=== PATIENT | male | born 1990 | race Caucasian/White ===

== ENCOUNTER 2017-05-01 06:05 | Emergency (ER) | payer SELFPAY ==
[2017-05-01 06:10] VITALS: BP 135/64; PULSE 71; RESP 16; TEMP 97.9; O2SAT 97
[2017-05-01] MEDS ORDERED: PENICILLIN VK 250MG PREPACK#6 BTL TAKEHOME ONE (06:16)
[2017-05-01] MEDS ORDERED: PENICILLIN VK 250 MG TAB PO ONE ×2 (06:16→06:19)
--- NOTE | 2017-05-01 06:16 | EDPHY ---
H & P Stated Complaint: right, upper toothache x1 week HPI/ROS: HPI CHIEF COMPLAINT: Dental pain x1 week HISTORY OF PRESENT ILLNESS: This patient 27-year-old male homeless, denies any significant medical history does not take any daily medications, tells me that is molar and premolar to that on the right upper side has pain x1 week. No facial swelling. No fever. No trouble swallowing. No drooling or trismus. States he has dental decay. No dentist. Presents emergency room with 1 week of worsening pain. Past Medical History: No significant medical history Past Surgical History: no significant surgical history Social History: Smokes tobacco daily, denies alcohol, occasional marijuana Family History: Noncontributory ROS REVIEW OF SYSTEMS: A comprehensive 10 point review of systems is otherwise negative aside from elements mentioned in the history of present illness. Exam Constitutional triage nursing summary reviewed, vital signs reviewed, awake/ alert. Eyes normal conjunctivae and sclera, EOMI, PERRLA. HENT oropharynx: the right upper posterior molar and premolar have dental decay present, no gumline abscess, no facial swelling, no signs of Luis Alberto's, normal inspection, atraumatic, moist mucus membranes, no epistaxis, neck supple / no meningismus, no raccoon eyes. Respiratory clear to auscultation bilaterally, normal breath sounds, no respiratory distress, no wheezing. Cardiovascular rate normal, regular rhythm, no murmur, no edema, distal pulses normal. Gastrointestinal soft, non-tender, no rebound, no guarding, normal bowel sounds, no distension, no pulsatile mass. Genitourinary no CVA tenderness. Musculoskeletal no midline vertebral tenderness, full range of motion, no calf swelling, no tenderness of extremities, no meningismus, good pulses, neurovascularly intact. Skin pink, warm, & dry, no rash, skin atraumatic. Neurologic awake, alert and oriented x 3, AAOx3, moves all 4 extremities equally, motor intact, sensory intact, CN II-XII intact, normal cerebellar, normal vision, normal speech. Psychiatric normal mood/affect. Heme/Lymph/Immune no lymphadenopathy. Differential Diagnosis: includes but is not limited to in no particular order acute dental infection, pulpitis, nerve root infection, cavities, gumline abscess, doubt early osteomyelitis Medical Decision Making: Plan for this patient Pen-VK here in the emergency room and ibuprofen. Prescription for both. Follow up with dentist referrals given. Return emergency room if there is any worsening symptoms questions or concerns he understand. Also understands refrain from smoking. Source: Patient - Personal History Current Tetanus/Diphtheria Vaccine: Yes Current Tetanus Diphtheria and Acellular Pertussis (TDAP): Yes Tetanus Vaccine Date: <10 years - Medical/Surgical History Hx Asthma: No Hx Chronic Respiratory Disease: No Hx Diabetes: No Hx Cardiac Disease: No Hx Renal Disease: No Hx Alcoholism: No Other PMH: spinal fusion 2012. femur sx in 2012 - Social History Smoking Status: Current some day smoker Constitutional: Initial Vital Signs Temperature (C) 36.6 C 05/01/17 06:07 Heart Rate 71 05/01/17 06:07 Respiratory Rate 16 05/01/17 06:07 Blood Pressure 135/64 H 05/01/17 06:07 O2 Sat (%) 97 05/01/17 06:07 O2 Delivery Mode Room Air Allergies/Adverse Reactions: No Known Allergies Allergy (Unverified 05/01/17 06:10) Home Medications: Medication Instructions Recorded Ibuprofen [Motrin (*)] 800 mg PO Q6-8PRN #10 tab 05/01/17 Penicillin V Potassium [Penicillin 500 mg PO BID #14 tab 05/01/17 VK] Departure - Departure Disposition: Home, Routine, Self-Care Clinical Impression: Pain, dental Condition: Good Instructions: Toothache (ED) Referrals: NONE *PRIMARY CARE P,. [Primary Care Provider] - As per Instructions [facility] [Outside] - As per Instructions [facility] [Outside] - As per Instructions [facility] [Outside] - As per Instructions [facility] [Outside] - As per Instructions [facility] [Outside] - As per Instructions Prescriptions: Ibuprofen [Motrin (*)] 800 mg PO Q6-8PRN #10 tab Penicillin V Potassium [Penicillin VK] 500 mg PO BID #14 tab
== END 2017-05-01 06:27 | disposition home or self-care (01) ==
DX: K08.89 Other specified disorders of teeth and supporting structures (principal); F17.200 Nicotine dependence, unspecified, uncomplicated

== ENCOUNTER 2017-05-04 02:51 | Emergency (ER) | payer SELFPAY ==
[2017-05-04 02:57] VITALS: TEMP 97.9
--- NOTE | 2017-05-04 04:51 | EDPHY ---
H & P Stated Complaint: dental pain increasing x1 month Time Seen by Provider: 05/04/17 04:39 HPI/ROS: HPI The patient presents with tooth pain of his right upper molar and wisdom tooth. He has had pain for about 1 month. He was seen here recently and given a course of penicillin which did not improve his pain much. The pain is achy, worse at night, does not radiate and is moderate in severity. He has not seen a dentist.. REVIEW OF SYSTEMS Constitutional: No fever, no chills. Eyes: No discharge. ENT: No sore throat. Musculoskeletal: No back pain. Skin: No rashes. Neurological: No headache. PMHx: Healthy Soc Hx: Homeless PHYSICAL General Appearance: Alert, no distress Eyes: Pupils equal and round no pallor or injection ENT, Mouth: Right upper wisdom tooth is impacted and fractured, Mucous membranes moist Respiratory: Breathing comfortably Neurological: A&O, moves all extremities Skin: Warm and dry, no rashes Musculoskeletal: Neck is supple non tender Extremities: symmetrical, full range of motion Psychiatric: Patient is oriented X 3, there is no agitation Source: Patient Exam Limitations: No limitations - Personal History Tetanus Vaccine Date: 2012 - Medical/Surgical History Hx Asthma: No Hx Chronic Respiratory Disease: No Hx Diabetes: No Hx Cardiac Disease: No Hx Renal Disease: No Hx Cirrhosis: No Hx Alcoholism: No Hx HIV/AIDS: No Hx Splenectomy or Spleen Trauma: No Other PMH: dental issues, spinal fusion 2013. femur sx in 2012 - Social History Smoking Status: Current some day smoker Constitutional: Initial Vital Signs Temperature (C) 36.6 C 05/04/17 02:53 Heart Rate 50 L 05/04/17 02:53 Respiratory Rate 14 05/04/17 02:53 Blood Pressure 112/84 H 05/04/17 02:53 O2 Sat (%) 97 05/04/17 02:53 O2 Delivery Mode Room Air Allergies/Adverse Reactions: No Known Allergies Allergy (Unverified 05/01/17 06:10) Home Medications: Medication Instructions Recorded NK [No Known Home Meds] 05/04/17 Medical Decision Making Differential Diagnosis: This is a 27-year-old man with dental decay who presents with tooth pain. This is been present for the last 1 month. On exam, he does have fractured tooth, however does not have any indication of infection at this point. Will likely require extraction. I have referred him to [facility]. We have provided him with information on how to get there. He does not have a cell phone. Differential diagnosis includes tooth fracture, tooth infection, dental caries. Procedure: Regional anesthesia. A dental block was performed for tooth pain. The block was performed with Marcaine with epinephrine. The patient experienced complete pain relief. The procedure was performed by myself. Departure - Departure Disposition: Home, Routine, Self-Care Clinical Impression: Pain due to dental caries Condition: Good Instructions: Dental Caries (ED) Additional Instructions: Please follow-up with [facility] today to get care for your teeth. Referrals: [facility] [Outside] - As per Instructions [facility] [Outside] - As per Instructions
[2017-05-04 05:01] VITALS: BP 114/76; PULSE 52; RESP 16; O2SAT 96
== END 2017-05-04 05:01 | disposition home or self-care (01) ==
DX: K02.9 Dental caries, unspecified (principal); F17.200 Nicotine dependence, unspecified, uncomplicated